=== PATIENT | female | born 1930 | race African-American/Black ===

== ENCOUNTER 2016-08-14 10:00 | Outpatient (CLI) | payer MEDICARE, OTHER | END 2016-08-14 10:02 | LOC: POD 10:00 | PROVIDERS: ATTEND Podiatrist Public Medicine | DX: B35.1 Tinea unguium (principal); L60.0 Ingrowing nail; M79.674 Pain in right toe(s); M79.675 Pain in left toe(s) | CPT/HCPCS: 11721; G0463 ==

== ENCOUNTER 2016-08-27 15:06 | Emergency (ER) | payer MEDICARE, OTHER ==
[2016-08-27 15:31] VITALS: BP 177/98
--- NOTE | 2016-08-27 15:43 | ED Physician Documentation ---
General Adult - HISTORIAN Historian: patient - HPI Stated Complaint: fall Chief Complaint: General Adult Onset: days ago (3 days ago) Timing: still present Further Comments: yes (Patient was wlking and got her toe causght on a rug and fell backwards and sustained injury to the) - ROS CONST: no problems EYES/ENT: none CVS/RESP: none GI/: none - PAST HX Past History: hypertension, other (breast cancer, HTN) Other History: none Surgeries/Procedures: other (lumpectomy) Allergies/Adverse Reactions: Allergies Allergy/AdvReac Type Severity Reaction Status Date / Time No Known Allergies Allergy Verified 08/27/16 15:24 Home Medications: Ambulatory Orders Medication Instructions Recorded Aspir 81 81 mg PO DAILY u2 10/08/12 - SOCIAL HX Smoking History: non-smoker Alcohol Use: none Drug Use: none - FAMILY HX Family History: No - VITAL SIGNS Vital Signs: Vital Signs Temp Pulse Resp BP Pulse Ox 98.8 F 74 16 177/98 98 08/27/16 15:19 08/27/16 15:19 08/27/16 15:19 08/27/16 15:19 08/27/16 15:19 - REVIEWED ASSESSMENTS Nursing Assessment Reviewed: Yes Vitals Reviewed: Yes ED Results Lab/Radiology - Radiology Radiology Impressions: degenerative disc disease, multiple levels. No acute fracture noted. General Adult Physical Exam - PHYSICAL EXAM GENERAL APPEARANCE: mild distress EENT: eye inspection normal, ENT inspection normal NECK: normal inspection, thyroid normal, supple. No: thyromegaly, lymphadenopathy RESPIRATORY: no resp distress, chest non-tender, breath sounds normal. No: wheezes, rales, rhonchi CVS: reg rate & rhythm, heart sounds normal, equal pulses, no murmur ABDOMEN: soft, no organomegaly BACK: other (tenderness to palpation over the left lateral mid to upper thoracic area, no bony abnl noted). No: CVA tenderness (R), CVA tenderness (L) SKIN: warm/dry, normal color EXTREMITIES: non-tender, normal range of motion NEURO: oriented X3, CN's nml as tested, motor nml, sensation nml Discharge Clincal Impression: Thoracic back pain Qualifiers: Chronicity: acute Back pain laterality: left Qualified Code(s): M54.6 - Pain in thoracic spine Referrals: Sue Mcneill MD [Primary Care Provider] - 09/03/16 Additional Instructions: Try using a warm compress to the back area. Take some Aleve 220mg tablets one to two tablet twice a day with food as needed for pain. Consider getting a medical alert system. Home Medications: Ambulatory Orders Aspir 81 81 mg PO DAILY u2 10/08/12 Condition: Stable Disposition: 01 HOME, SELF-CARE Decision to Admit: NO Date of Decison to Admit: 08/27/16 Decision Time: 16:48
--- NOTE | 2016-08-27 16:49 | Diagnostic Imaging Report ---
[facility] [address] [facility].[address] 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 Electronically signed on Aug 27, 2016 4:32:02 PM HEAVY MACHINERY ASSEMBLER by: Carlton CAMACHO
--- NOTE | 2016-08-27 16:50 | Diagnostic Imaging Report ---
[facility] [address] [facility].[address] 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 There is no evidence of fracture, subluxation, or prevertebral soft tissue swelling. Impression: Multilevel spondylosis without fracture. Electronically signed on Aug 27, 2016 4:32:51 PM PANTOGRAPH MACHINE SET UP OPERATOR by: Carlton CAMACHO
== END 2016-08-27 16:57 | disposition home or self-care (01) ==
LOC: ED 15:06
DX: M54.6 Pain in thoracic spine (principal); W19.XXXA Unspecified fall, initial encounter; Y93.9 Activity, unspecified; Y99.9 Unspecified external cause status
CPT/HCPCS: 72040; 72072; 99283

== ENCOUNTER 2016-11-13 10:26 | Outpatient (CLI) | payer MEDICARE | END 2016-11-13 10:27 | LOC: POD 10:26 | PROVIDERS: ATTEND Podiatrist Public Medicine | DX: B35.1 Tinea unguium (principal); L60.0 Ingrowing nail; M79.674 Pain in right toe(s); M79.675 Pain in left toe(s) | CPT/HCPCS: 11721; G0463 ==

== ENCOUNTER 2016-11-17 12:33 | Emergency (ER) | payer MEDICARE ==
[2016-11-17] MEDS ORDERED: 0.9 % SODIUM CHLORIDE 500 ML IV ONE (12:52)
[2016-11-17 13:54] LABS: BASOPHILS % 0.2 (0.0-1.5); EOSINOPHILS % 1.7 % (0.0-6.8); MEAN CORPUSCULAR VOLUME 95.8 fl (80.0-100.0); MONOCYTES % 7.3 % (0.0-11.0); NEUTROPHILS # 4.8 # k/uL (1.4-7.7)
[2016-11-17 14:02] LABS: eGFR (African) > 60; eGFR (Non-African) > 60
--- NOTE | 2016-11-17 14:23 | ED Physician Documentation ---
General Adult - HISTORIAN Historian: patient - HPI Stated Complaint: weakness Chief Complaint: General Adult Onset: days ago (1) Timing: still present Severity: moderate Further Comments: yes (Pt is an 86 yo female with c/o weakness. Pt "does not eat much," mainly because she lives alone and does not like to cook, she says. No other specific complaints.) - ROS CONST: weakness EYES/ENT: none CVS/RESP: none GI/: none MS/SKIN/LYMPH: none - PAST HX Past History: hypertension, other (breast cancer) Surgeries/Procedures: hysterectomy, other (appendectomy, tonsillectomy) Allergies/Adverse Reactions: Allergies Allergy/AdvReac Type Severity Reaction Status Date / Time No Known Allergies Allergy Verified 11/17/16 12:51 Home Medications: Ambulatory Orders Medication Instructions Recorded Aspir 81 81 mg PO DAILY u2 10/08/12 - SOCIAL HX Smoking History: quit greater than 1 year - FAMILY HX Family History: No - VITAL SIGNS Vital Signs: Vital Signs Temp Pulse Resp BP Pulse Ox 98.2 F 75 16 157/89 97 11/17/16 13:11 11/17/16 13:11 11/17/16 13:11 11/17/16 13:11 11/17/16 13:11 - REVIEWED ASSESSMENTS Nursing Assessment Reviewed: Yes Vitals Reviewed: Yes Progress - Progress Progress: NS 500 cc IVF improved HCTZ 25 mg po (pt did not take her bp med today). ED Results Lab/Radiology - Lab Results Lab Results: Lab Results 11/17/16 11/17/16 13:45 13:45 WBC 7.20 K/ul K/ul (4.00-12.00) RBC 4.16 M/ul M/ul (3.90-5.20) Hgb 12.5 g/dL g/dL (12.0-16.0) Hct 39.9 % % (34.5-46.5) MCV 95.8 fl fl (80.0-100.0) MCH 30.0 pg pg (28.0-34.0) MCHC 31.3 g/dL g/dL (30.0-36.0) RDW 14.1 % % (11.3-14.3) Plt Count 141 K/mm3 K/mm3 (130-400) Neut % (Auto) 66.1 % % (39.0-79.0) Lymph % (Auto) 22.6 % % (16.0-50.0) [place] % (Auto) 7.3 % % (0.0-11.0) Eos % (Auto) 1.7 % % (0.0-6.8) Baso % (Auto) 0.2 (0.0-1.5) Neut # 4.8 # k/uL # k/uL (1.4-7.7) Lymph # 1.6 # k/uL # k/uL (0.6-4.0) [place] # 0.5 # k/uL # k/uL (0.0-0.9) Eos # 0.1 # k/uL # k/uL (0.0-0.6) Baso # 0.0 # k/uL # k/uL (0.0-0.5) Reactive Lymphs % 2.0 % % (0.0-5.0) Reactive Lymphs # 0.2 # k/uL # k/uL (0.0-0.8) Sodium 140 mmol/L mmol/L (136-145) Potassium 4.7 mmol/L mmol/L (3.5-5.0) Chloride 116 mmol/L H mmol/L (98-110) Carbon Dioxide 29 mmol/L mmol/L (20-32) BUN 20 mg/dL mg/dL (10-26) Creatinine 1.1 mg/dL mg/dL (0.4-1.5) Estimated Creat Clear 32 Est GFR ( Amer) > 60 (60 - ) Est GFR (Non-Af Amer) > 60 (60 - ) Glucose 86 mg/dL mg/dL (70-99) Calcium 9.9 mg/dL mg/dL (8.5-10.5) Total Bilirubin 0.5 mg/dL mg/dL (0.2-1.2) AST 23 U/L U/L (0-41) ALT 10 U/L U/L (0-45) Alkaline Phosphatase 48 U/L U/L (46-116) Total Protein 7.3 g/dL g/dL (6.0-8.5) Albumin 3.5 g/dL g/dL (3.0-5.5) - Orders Orders: ED Orders Category Date Time Status Place Saline Lock/IV Now Care 11/17/16 12:52 Active CBC/PLATELET/DIFF Routine Lab 11/17/16 13:45 Completed CMP Routine Lab 11/17/16 13:45 Completed UA [URINALYSIS] Routine Lab 11/17/16 Ordered 0.9 % Sodium Chloride [Normal Saline] 500 ml Med 11/17/16 12:52 Discontinued IV NOW General Adult Physical Exam - PHYSICAL EXAM GENERAL APPEARANCE: mild distress EENT: dry mucous membranes NECK: normal inspection, supple RESPIRATORY: no resp distress, chest non-tender, breath sounds normal CVS: reg rate & rhythm, heart sounds normal ABDOMEN: soft, no organomegaly, normal bowel sounds BACK: normal inspection, no CVA tenderness SKIN: warm/dry, normal color EXTREMITIES: non-tender, normal range of motion, no evidence of injury, no edema NEURO: oriented X3, motor nml, sensation nml Discharge Clincal Impression: mild dehydration, hypertension Referrals: Sue Mcneill MD [Primary Care Provider] - 2 Days Home Medications: Ambulatory Orders Aspir 81 81 mg PO DAILY u2 10/08/12 Condition: Good Disposition: 01 HOME, SELF-CARE Decision to Admit: NO Decision Time: 15:49
[2016-11-17] MEDS ORDERED: HYDROCHLOROTHIAZIDE 25 MG TABLET PO ONE (14:42)
[2016-11-17] MEDS ORDERED: HYDROCHLOROTHIAZIDE 25 MG TABLET PO SCH (15:00)
[2016-11-17 15:54] VITALS: BP 169/89
[2016-11-18 05:53] LABS: APPEARANCE,URINE CLOUDY (CLEAR); COLOR,URINE YELLOW (YELLOW); OCCULT BLOOD,URINE TRACE-INTACT (NEGATIVE); PH URINE 8.5 (5.0 - 8.0)
== END 2016-11-17 15:51 | disposition home or self-care (01) ==
LOC: ED 12:33
DX: E86.0 Dehydration (principal); I10 Essential (primary) hypertension
CPT/HCPCS: 80053; 81002; 85025; J7060; 96360; 99283; S1016

== ENCOUNTER 2017-02-26 09:49 | Outpatient (CLI) | payer MEDICARE, OTHER | END 2017-02-26 09:50 | LOC: POD 09:49 | PROVIDERS: ATTEND Podiatrist Public Medicine | DX: B35.1 Tinea unguium (principal); L60.0 Ingrowing nail; M79.674 Pain in right toe(s); M79.675 Pain in left toe(s) | CPT/HCPCS: 11721; G0463 ==

== ENCOUNTER 2017-08-13 11:05 | Outpatient (CLI) | payer MEDICARE, OTHER | END 2017-08-13 11:06 | LOC: POD 11:05 | PROVIDERS: ATTEND Podiatrist Public Medicine | DX: B35.1 Tinea unguium (principal); L60.0 Ingrowing nail; M79.674 Pain in right toe(s); M79.675 Pain in left toe(s) | CPT/HCPCS: 11721; G0463 ==

== ENCOUNTER 2017-11-12 09:08 | Outpatient (CLI) | payer MEDICARE, OTHER | END 2017-11-12 09:10 | LOC: POD 09:08 | PROVIDERS: ATTEND Podiatrist Public Medicine | DX: B35.1 Tinea unguium (principal); L60.0 Ingrowing nail; M79.674 Pain in right toe(s); M79.675 Pain in left toe(s) | CPT/HCPCS: 11721; G0463 ==

== ENCOUNTER 2017-11-20 18:06 | Emergency (ER) | payer MEDICARE, OTHER ==
[2017-11-20] MEDS ORDERED: 0.9 % SODIUM CHLORIDE 500 ML IV ONE (18:12)
[2017-11-20 19:32] LABS: BASOPHILS % 0.8 (0.0-1.5); EOSINOPHILS % 3.1 % (0.0-6.8); MEAN CORPUSCULAR HEMOGLOBIN 29.4 pg (28.0-34.0); MEAN CORPUSCULAR VOLUME 94.7 fl (80.0-100.0); MONOCYTES % 8.1 % (0.0-11.0); NEUTROPHILS # 2.2 # k/uL (1.4-7.7)
[2017-11-20 19:45] LABS: eGFR (African) > 60; eGFR (Non-African) > 60
[2017-11-20] MEDS ORDERED: hydrALAZINE HCL 20 MG/1 ML IVP ONE (20:12)
--- NOTE | 2017-11-20 21:54 | ED Physician Documentation ---
General Adult - HISTORIAN Historian: patient - HPI Stated Complaint: Generalized weakness Chief Complaint: General Adult Additional Information: Sudden onset weakness, dizziness today Onset: hours (1) Timing: still present Severity: moderate Modifying Factors: none Quality: generalized Further Comments: no Last known Well Date: 11/19/17 - ROS CONST: no problems. denies: fever, sweating, recent illness, weakness, weight loss, chills EYES/ENT: none CVS/RESP: none GI/: none MS/SKIN/LYMPH: none NEURO/PSYCH: dizziness - PAST HX Past History: hypertension Other History: none Surgeries/Procedures: hysterectomy Immunizations: referred to PCP Allergies/Adverse Reactions: Allergies Allergy/AdvReac Type Severity Reaction Status Date / Time No Known Allergies Allergy Verified 11/20/17 18:44 Home Medications: Ambulatory Orders Medication Instructions Recorded Aspirin [Tatiana] 81 mg PO DAILY 11/20/17 - SOCIAL HX Smoking History: non-smoker Alcohol Use: none Drug Use: none - FAMILY HX Family History: Yes - VITAL SIGNS Vital Signs: Vital Signs Temp Pulse Resp BP Pulse Ox 98.4 F 81 18 164/86 96 11/20/17 18:30 11/20/17 18:30 11/20/17 18:30 11/20/17 18:30 11/20/17 18:30 - REVIEWED ASSESSMENTS Nursing Assessment Reviewed: Yes Vitals Reviewed: Yes Progress - Results/Orders Results/Orders: cbc, cmp, trop, pt/ptt/inr, bnp, ekg, cxr, ct head ordered - Progress Progress: Pt. given 500 cc NS IV abd 10 mg Hydralazine IVP in ER with reduction of BP from 229/108 to 130/70 with significant improvement, resolution of symptoms, clear speech Critical Care Note - Critical Care Note Total Time (mins): 0 ED Results Lab/Radiology - Lab Results Lab Results: Lab Results 11/20/17 11/20/17 11/20/17 19:25 19:25 19:25 WBC RBC Hgb Hct MCV MCH MCHC RDW Plt Count Neut % (Auto) Lymph % (Auto) [place] % (Auto) Eos % (Auto) Baso % (Auto) Neut # (Auto) Lymph # (Auto) [place] # (Auto) Eos # (Auto) Baso # (Auto) Reactive Lymphs % Reactive Lymphs # PT 11.9 Seconds H Seconds (9.4-11.6) INR 1.13 (0.9-1.2) APTT 25.6 Seconds Seconds (24.5-32.8) Sodium 142 mmol/L mmol/L (136-145) Potassium 3.6 mmol/L mmol/L (3.5-5.1) Chloride 104 mmol/L mmol/L (98-107) Carbon Dioxide 28 mmol/L mmol/L (22-30) BUN 21 mg/dL H mg/dL (7-17) Creatinine 1.10 mg/dL H mg/dL (0.52-1.04) Estimated Creat Clear 36 Est GFR ( Amer) > 60 (60 - ) Est GFR (Non-Af Amer) > 60 (60 - ) Glucose 97 mg/dL mg/dL (74-106) Calcium 9.4 mg/dL mg/dL (8.4-10.2) Total Bilirubin 0.7 mg/dL mg/dL (0.2-1.3) AST 20 U/L U/L (15-46) ALT 20 U/L U/L (13-69) Alkaline Phosphatase 74 U/L U/L (38-126) Troponin I < 0.03 ng/mL L ng/mL (0.03-0.06) NT-Pro-B Natriuret Pep 741.6 pg/mL H pg/mL (15.0-450.0) Total Protein 6.8 g/dL g/dL (6.3-8.2) Albumin 3.4 g/dL L g/dL (3.5-5.0) 11/20/17 19:25 WBC 4.20 K/ul K/ul (4.00-12.00) RBC 4.40 M/ul M/ul (3.90-5.20) Hgb 12.9 g/dL g/dL (12.0-16.0) Hct 41.7 % % (34.5-46.5) MCV 94.7 fl fl (80.0-100.0) MCH 29.4 pg pg (28.0-34.0) MCHC 31.0 g/dL g/dL (30.0-36.0) RDW 14.8 % H % (11.3-14.3) Plt Count 173 K/mm3 K/mm3 (130-400) Neut % (Auto) 52.9 % % (39.0-79.0) Lymph % (Auto) 32.7 % % (16.0-50.0) [place] % (Auto) 8.1 % % (0.0-11.0) Eos % (Auto) 3.1 % % (0.0-6.8) Baso % (Auto) 0.8 (0.0-1.5) Neut # (Auto) 2.2 # k/uL # k/uL (1.4-7.7) Lymph # (Auto) 1.4 # k/uL # k/uL (0.6-4.0) [place] # (Auto) 0.3 # k/uL # k/uL (0.0-0.9) Eos # (Auto) 0.1 # k/uL # k/uL (0.0-0.6) Baso # (Auto) 0.0 # k/uL # k/uL (0.0-0.5) Reactive Lymphs % 2.5 % % (0.0-5.0) Reactive Lymphs # 0.1 # k/uL # k/uL (0.0-0.8) PT INR APTT Sodium Potassium Chloride Carbon Dioxide BUN Creatinine Estimated Creat Clear Est GFR ( Amer) Est GFR (Non-Af Amer) Glucose Calcium Total Bilirubin AST ALT Alkaline Phosphatase Troponin I NT-Pro-B Natriuret Pep Total Protein Albumin - Radiology Radiology Impressions: ct head reveals no ventricular enlargement and no cva - Orders Orders: ED Orders Category Date Time Status CHEST 1VIEW [RAD] Routine Exams 11/20/[address] BRAIN W/O CONTRAST Routine Exams 11/20/17 Taken CBC/PLATELET/DIFF Routine Lab 11/20/17 19:25 Completed CMP Routine Lab 11/20/17 19:25 Completed NT-proBNP Routine Lab 11/20/17 19:25 Completed PT-INR Routine Lab 11/20/17 19:25 Completed PTT Routine Lab 11/20/17 19:25 Completed TROPONIN I (cTnI) Routine Lab 11/20/17 19:25 Completed URINALYSIS Routine Lab 11/20/17 18:16 Ordered 0.9 % Sodium Chloride [Normal Saline] 500 ml Med 11/20/17 18:12 Discontinued IV NOW hydrALAZINE HCL [Apresoline] Med 11/20/17 20:12 Discontinued 10 mg IVP NOW ONE EKG WITH COMPARISON Routine Ther 11/20/17 Ordered General Adult Physical Exam - PHYSICAL EXAM GENERAL APPEARANCE: moderate distress EENT: ENT inspection normal, pharynx normal, other (bilateral catarracts) NECK: normal inspection, thyroid normal, supple RESPIRATORY: no resp distress, chest non-tender, breath sounds normal CVS: reg rate & rhythm, heart sounds normal, equal pulses ABDOMEN: soft, no organomegaly, normal bowel sounds, no abdominal bruit, no distension, non-tender BACK: normal inspection, no CVA tenderness SKIN: warm/dry, normal color EXTREMITIES: non-tender, normal range of motion, no evidence of injury, no edema NEURO: oriented X3, other (no facial droop but speech nondistinct without teeth , after treatment speech clear, still lose muscle tension around mouth without teeth) Discharge Clincal Impression: Accelerated hypertension Referrals: Sue Mcneill MD [Primary Care Provider] - 2 Days Comments: Discharged home with script for Hydralazine 25 mg p.o. bid Condition: Stable Disposition: 01 HOME, SELF-CARE Decision to Admit: NO Decision Time: 21:55
[2017-11-20 22:16] VITALS: BP 130/70
--- NOTE | 2017-11-21 07:06 | Diagnostic Imaging Report ---
DENISA BALL [facility] [address] [facility] [address] [place], [place]. [address] Report Submission Date: Nov 20, 2017 7:21:08 PM CDT Patient Study Name: VICKIE DOSHI Date: Nov 20, 2017 6:56:57 PM CDT Modality Type: DX Gender: F Description: CHEST : 30 Institution: [facility] Physician: DENISA BALL A single frontal view of the chest History: PCXR, LEFT SIDED RALES, WEAKNESS AND DIZZINESS TODAY No comparison studies. Cardiomegaly and aortic calcification are seen. Low lung volumes. Pulmonary vascular congestion is present. Left basilar consolidation obscures the left hemidiaphragm. Surgical clips are seen in the axilla. Extensive degenerative changes are noted in bilateral shoulders. Several monitoring leads or the chest obscure the lung fernando. Impression: 1. Cardiomegaly with pulmonary vascular congestion 2. Left basilar consolidation. Small left pleural effusion is suggested. Post surgical changes left axilla. Electronically signed on Nov 20, 2017 7:21:08 PM CDT by: Tereza CAMACHO
--- NOTE | 2017-11-21 07:07 | Diagnostic Imaging Report ---
DENISA BALL [facility] [address] [facility] [address] [place], [place]. [address] Report Submission Date: Nov 20, 2017 7:18:01 PM CDT Patient Study Name: VICKIE DOSHI Date: Nov 20, 2017 6:50:21 PM CDT Modality Type: CT\SR Gender: F Description: CT BRAIN W/O CONTRAST : 30 Institution: [facility] Physician: DENISA BALL CT head History: CT HEAD W/O, HYDROCEPHALUS, PT STATES DIZZINESS AND WEAKNESS TODAY Multiple axial images of the brain are submitted with reconstructions No comparison studies No evidence of acute intracranial hemorrhage. No midline shift. Cerebral atrophy. Periventricular small vessel ischemic disease. Lacunar infarcts basal ganglia Prominent lateral ventricles and 3rd ventricle consistent with provided history of hydrocephalus. Scattered lytic calvarial lesions may be related to demineralization. Paranasal air sinuses and mastoid air cells are well aerated. Impression: 1. No evidence of acute intracranial hemorrhage. No midline shift. 2. Hydrocephalus. No comparison studies. No obvious mass on this noncontrast examination. 3. Cerebral atrophy. Periventricular hyppdensities may be related to small vessel ischemic disease and CSF transudation. 4. Lacunar infarcts in the basal ganglia. MR may be done as needed. Electronically signed on Nov 20, 2017 7:18:01 PM CDT by: Tereza CAMACHO
== END 2017-11-20 22:13 | disposition home or self-care (01) ==
LOC: ED 18:06
DX: I10 Essential (primary) hypertension (principal); R53.1 Weakness
CPT/HCPCS: 70450; 71045; 80053; 83880; 84484; 85025; 85610; 85730; J0360; J7060; 96365; 96375; 99283

== ENCOUNTER 2018-01-16 19:37 | Emergency (ER) | payer MEDICARE, OTHER ==
--- NOTE | 2018-01-16 19:44 | ED Physician Documentation ---
Fall - HISTORIAN Historian: patient, paramedics - [facility] Stated Complaint: fall Chief Complaint: Fall Additional Information: Walked to answer door, but walker turned over when she backed up. Landed on her back and couldn't get up. She says this occurred at 1700 today. EMS called by her medical aler alarm. EMS says her ac is broken and temp about 85 in her home. She is awake and alert in ER and says she feels fine. She denies LOC or injury. HX HTN. - ROS CONST: no problems - PAST HX Past History: other (HTN, breast cancer, Adair's Palsy) Allergies/Adverse Reactions: Allergies Allergy/AdvReac Type Severity Reaction Status Date / Time No Known Allergies Allergy Verified 11/20/17 18:44 Home Medications: Ambulatory Orders Medication Instructions Recorded Aspirin [Tatiana] 81 mg PO DAILY 11/20/17 - SOCIAL HX Smoking History: non-smoker - FAMILY HX Family History: no significant history - VITAL SIGNS Vital Signs: Vital Signs Temp Pulse Resp BP Pulse Ox 130/70 11/20/17 22:13 - REVIEWED ASSESSMENTS Nursing Assessment Reviewed: Yes Vitals Reviewed: Yes Progress - Progress Progress: Eating a sandwich, visiting with family. Discussed temperature of patient's home with family members. They iinsist she likes it hot in her house. They know the freon is low in her ac system. ED Results Lab/Radiology - Orders Orders: ED Orders Category Date Time Status Place IV Lock 1T Care 01/16/18 19:40 Ordered CBC/PLATELET/DIFF Routine Lab 01/16/18 Ordered CMP Routine Lab 01/16/18 Ordered CREATINE KINASE Routine Lab 01/16/18 Ordered NT-proBNP Stat Lab 01/16/18 Ordered 0.9 % Sodium Chloride [Normal Saline] 1,000 ml Med 01/16/18 20:00 Ordered IV 1T Fall Physical Exam - Physical Exam General Appearance: no acute distress, alert Head: non-tender, no swelling, no obvious injury Neck: non-tender, painless ROM Eye: decreased vision (OD not functional) ENT: nml external inspection, no oral injury Resp/CVS: chest non-tender, breath sounds nml, heart sounds nml Abdomen: soft, normal bowel sounds, non-tender, other (pelvis stable) Neuro: CN's nml as tested, sensation nml, motor nml, slurred speech (L facial droop (old)) Skin: color nml, warm Back: normal inspection, no vertebral tenderness Extremities: pelvis stable, hips non-tender, other (readily rises to sitting position) - Manor Coma Score Eyes Open: Spontaneous Speech: Oriented Motor: Obeys Commands Discharge Clincal Impression: Fall Qualifiers: Encounter type: initial encounter Qualified Code(s): W19.XXXA - Unspecified fall, initial encounter Referrals: Sue Mcneill MD [Primary Care Provider] - 2 Days Additional Instructions: Keep the temperature in your home at something less than 80 degrees, or please stay with family until your air conditioner has more freon. Follow up with Dr. Mcneill next week. Condition: Good Disposition: 01 HOME, SELF-CARE Decision to Admit: NO Decision Time: 20:50
[2018-01-16] MEDS: 0.9 % SODIUM CHLORIDE 1,000 ML IV ONE (20:30)
[2018-01-16 20:41] LABS: BASOPHILS % 0.2 (0.0-1.5); EOSINOPHILS % 2.6 % (0.0-6.8); MEAN CORPUSCULAR HEMOGLOBIN 29.4 pg (28.0-34.0); MEAN CORPUSCULAR VOLUME 94.5 fl (80.0-100.0); MONOCYTES % 7.4 % (0.0-11.0)
[2018-01-16 21:06] VITALS: BP 203/110
[2018-01-17] MEDS: 0.9 % SODIUM CHLORIDE 1,000 ML IV SCH (01:10)
== END 2018-01-16 21:09 | disposition home or self-care (01) ==
LOC: ED 19:37
DX: S39.92XA Unspecified injury of lower back, initial encounter (principal); W19.XXXA Unspecified fall, initial encounter; Y92.008 Other place in unspecified non-institutional (private) residence as the place of occurrence of the external cause; Y93.9 Activity, unspecified; Y99.9 Unspecified external cause status
CPT/HCPCS: 80053; 82550; 83880; 85025; J7030; 96365; 99284

== ENCOUNTER 2018-02-25 09:32 | Outpatient (CLI) | payer MEDICARE, OTHER | END 2018-02-25 09:33 | LOC: POD 09:32 | PROVIDERS: ATTEND Podiatrist Public Medicine | DX: B35.1 Tinea unguium (principal); L60.0 Ingrowing nail; M79.674 Pain in right toe(s); M79.675 Pain in left toe(s) | CPT/HCPCS: 11721; G0463 ==

== ENCOUNTER 2018-03-24 15:00 | Emergency (ER) | payer MEDICARE, OTHER ==
--- NOTE | 2018-03-24 15:29 | ED Physician Documentation ---
Dyspnea - HISTORIAN Historian: patient - HPI Stated Complaint: Shortness of Breath/Weakness Chief Complaint: Dyspnea Additional Information: Over the last 2-3 weeks has been having some increase dyspnea. Complains of weakness and lethargy. Cough productive of clear phlegm. no chest noted. Mild orthopnic symptoms. No fever or chills noted. No household members sick. Severity: moderate Associated Symptoms: none. denies: chills, sweating, chest pain, chest discomfort - ROS CONST: no problems - PAST HX Lung Disease: none Cardiac Disease: none Allergies/Adverse Reactions: Allergies Allergy/AdvReac Type Severity Reaction Status Date / Time No Known Allergies Allergy Verified 03/24/18 15:25 Home Medications: Ambulatory Orders Medication Instructions Recorded Furosemide [Lasix] 20 mg PO PRN PRN 03/24/18 Hydralazine HCl [Apresoline] 25 mg PO BID 03/24/18 Senexon-S 8.6-50 Mg 2 tab PO HS PRN 03/24/18 - SOCIAL HX Smoking History: non-smoker, quit greater than 1 year (30 years ago. 65pack yr hx. ) Alcohol Use: none Drug Use: none - FAMILY HX Family History: no significant history - VITAL SIGNS Vital Signs: Vital Signs Temp Pulse Resp BP Pulse Ox 98.1 F 76 18 133/69 96 03/24/18 15:00 03/24/18 15:00 03/24/18 15:00 03/24/18 15:00 03/24/18 15:00 - REVIEWED ASSESSMENTS Nursing Assessment Reviewed: Yes Vitals Reviewed: Yes ED Results Lab/Radiology - Radiology Radiology Impressions: PA and lateral chest History: Dyspnea PA and lateral chest dated March 24, 2018 is without prior radiographs for comparison. The heart is mildly enlarged. There is abnormal perihilar fullness and haziness most consistent with mild congestive failure. There is no pleural effusion. There is no confluent infiltrate. Surgical clips are present of the left axilla. Degenerative findings of both shoulder joints are present. Impression: Mild cardiomegaly. Findings consistent with mild congestive failure. Dyspnea Physical Exam - EXAM General Appearance: no acute distress, alert, mild distress EENT: No: pharyngeal erythema Neck: nml inspection Respiratory: no resp. distress, breath sounds nml, no pain on inspiration, speaks full sentences, rales (in bases bilat R>L). No: rhonchi, chest wall tenderness CVS: reg. rate & rhythm, no murmur Abdomen: non-tender, no organomegaly Skin: color nml, no rash Neuro/Psych: oriented x3, CN's nml as tested, motor nml, sensation nml, mood/affect nml Discharge Clincal Impression: CHF (congestive heart failure) Referrals: Sue Mcneill MD [Primary Care Provider] - 2 Days Additional Instructions: Start taking lasix daily as instructed. Follow-up with primary care provider. Eat helthy diet. Condition: Stable Disposition: 01 HOME, SELF-CARE Decision to Admit: NO Date of Decison to Admit: 03/24/18 Decision Time: 16:49
[2018-03-24 16:04] LABS: BASOPHILS % 0.3 (0.0-1.5); EOSINOPHILS % 4.1 % (0.0-6.8); MEAN CORPUSCULAR VOLUME 95.2 fl (80.0-100.0); MONOCYTES % 9.2 % (0.0-11.0); NEUTROPHILS # 1.7 # k/uL (1.4-7.7)
[2018-03-24 16:15] LABS: eGFR (Non-African) > 60
[2018-03-24 17:27] VITALS: BP 150/68
[2018-03-24 17:30] LABS: APPEARANCE,URINE CLOUDY (CLEAR); COLOR,URINE YELLOW (YELLOW)
[2018-03-24 17:31] LABS: OCCULT BLOOD,URINE NEGATIVE (NEGATIVE)
--- NOTE | 2018-03-24 18:12 | Diagnostic Imaging Report ---
MARY CORREIA [facility] [address] [facility].[address] [address] Report Submission Date: Mar 24, 2018 4:21:13 PM CDT Patient Study Name: VICKIE DOSHI Date: Mar 24, 2018 3:42:07 PM CDT Modality Type: DX Gender: F Description: CHEST : 30 Institution: [facility] Physician: MARY CORREIA PA and lateral chest History: Dyspnea PA and lateral chest dated March 24, 2018 is without prior radiographs for comparison. The heart is mildly enlarged. There is abnormal perihilar fullness and haziness most consistent with mild congestive failure. There is no pleural effusion. There is no confluent infiltrate. Surgical clips are present of the left axilla. Degenerative findings of both shoulder joints are present. Impression: Mild cardiomegaly. Findings consistent with mild congestive failure. Electronically signed on Mar 24, 2018 4:21:13 PM CDT by: Ximena CAMACHO
== END 2018-03-24 17:26 | disposition home or self-care (01) ==
LOC: ED 15:00
DX: I50.9 Heart failure, unspecified (principal)
CPT/HCPCS: 71046; 80053; 81002; 83880; 84484; 85025; 99284; S1016

== ENCOUNTER 2018-10-27 14:03 | Emergency (ER) | payer MEDICARE, OTHER ==
[2018-10-27 14:34] VITALS: BP 144/80
--- NOTE | 2018-10-27 14:37 | ED Physician Documentation ---
General Adult - HISTORIAN Historian: patient - HPI Stated Complaint: Constipation Chief Complaint: General Adult Onset: days ago (14) Timing: still present Severity: mild Further Comments: yes (she reports no bowel movement in 14 days. She denies significant pain. She has a fullness at her recutm. She has tried 6 oz of mag citrate today and 4 oz of prune juice. No other complaints) - ROS CONST: no problems GI/: abdominal pain MS/SKIN/LYMPH: denies: rash - PAST HX Past History: hypertension Immunizations: UTD Allergies/Adverse Reactions: Allergies Allergy/AdvReac Type Severity Reaction Status Date / Time No Known Drug Allergies Allergy Verified 10/27/18 14:22 Home Medications: Ambulatory Orders Medication Instructions Recorded Furosemide [Lasix] 20 mg PO PRN PRN 03/24/18 Hydralazine HCl [Apresoline] 25 mg PO BID 03/24/18 Sennosides/Docusate Sodium 2 tab PO HS PRN 03/24/18 [Senna-S Laxative Tablet] - SOCIAL HX Smoking History: non-smoker Alcohol Use: none Drug Use: none - FAMILY HX Family History: No - VITAL SIGNS Vital Signs: Vital Signs Temp Pulse Resp BP Pulse Ox 97.0 F L 117 H 17 144/80 96 10/27/18 14:10 10/27/18 14:10 10/27/18 14:10 10/27/18 14:10 10/27/18 14:10 - REVIEWED ASSESSMENTS Nursing Assessment Reviewed: Yes Vitals Reviewed: Yes ED Results Lab/Radiology - Radiology Radiology Impressions: Examination: Obstruction series History: Abdominal discomfort Findings: 4 views obtained of the abdomen. No abnormal dilation of the large or small bowel. Moderate stool throughout the large bowel. No suspicious calcification projecting over the renal fossa or the lower pelvic region. Vascular calcifications. Articular degenerative changes. Osteopenia. Chronic interstitial changes. No blunting of the costophrenic margins. Impression: Moderate large bowel stool. No obstruction. Chronic interstitial changes. No effusion. No suspicious calcifications by plain film sensitivity. Electronically signed on Oct 27, 2018 2:54:21 PM CDT by: Saul Lainez - Orders Orders: ED Orders Category Date Time Status ABD SERIES [ABD SERIES PA CHEST] [RAD] Stat Exams 10/27/18 Ordered General Adult Physical Exam - PHYSICAL EXAM GENERAL APPEARANCE: no distress EENT: eye inspection normal, no signs of dehydration NECK: normal inspection RESPIRATORY: no resp distress CVS: reg rate & rhythm, heart sounds normal ABDOMEN: soft, normal bowel sounds, no distension, non-tender BACK: normal inspection EXTREMITIES: non-tender NEURO: oriented X3 Discharge Clincal Impression: Constipation Qualifiers: Constipation type: other constipation type Qualified Code(s): K59.09 - Other constipation Referrals: Primary Doctor,No [Primary Care Provider] - 2 Days Comments: 1. other 1/2 of mag citrate 2. Continue to increase fluids 3. Miralax 17gm in 8 oz of water daily 4. See PCP for any follow up needed 5. Return to ER for any emergent concerns Condition: Stable Disposition: 01 HOME, SELF-CARE Decision to Admit: NO Date of Decison to Admit: 10/27/18 Decision Time: 14:58
--- NOTE | 2018-10-27 15:02 | Diagnostic Imaging Report ---
SHANIQUE ESTRELLA [facility] [address] [facility] [address] [place], [place]. [address] Report Submission Date: Oct 27, 2018 2:54:21 PM CDT Patient Study Name: VICKIE DOSHI Date: Oct 27, 2018 2:26:41 PM CDT Modality Type: DX Gender: F Description: ABD SERIES PA CHEST : 30 Institution: [facility] Physician: SHANIQUE ESTRELLA Examination: Obstruction series History: Abdominal discomfort Findings: 4 views obtained of the abdomen. No abnormal dilation of the large or small bowel. Moderate stool throughout the large bowel. No suspicious calcification projecting over the renal fossa or the lower pelvic region. Vascular calcifications. Articular degenerative changes. Osteopenia. Chronic interstitial changes. No blunting of the costophrenic margins. Impression: Moderate large bowel stool. No obstruction. Chronic interstitial changes. No effusion. No suspicious calcifications by plain film sensitivity. Electronically signed on Oct 27, 2018 2:54:21 PM CDT by: Saul CAMACHO
== END 2018-10-27 15:19 | disposition home or self-care (01) ==
LOC: ED 14:03
DX: K59.09 Other constipation (principal)
CPT/HCPCS: 74022; 99282; 99283

== ENCOUNTER 2019-04-06 14:49 | Emergency (ER) | payer MEDICARE, OTHER ==
--- NOTE | 2019-04-06 14:51 | ED Physician Documentation ---
General Adult - HISTORIAN Historian: patient - HPI Stated Complaint: nausea/dizzy Chief Complaint: General Adult Additional Information: Patient presents to ED with nausea and dizziness for the past 2 days. She denies shortness of breath, chest pain, visual changes, vomiting, abdominal pain, or weakness. Caregiver states she has not been eating or drinking like she should. Last bowel movement was a couple of days ago. Patient has a history of CHF, breast cancer s/p chemo/ Onset: days ago (2) Timing: still present Severity: moderate - ROS CONST: denies: fever EYES/ENT: denies: problems with vision CVS/RESP: denies: chest pain, shortness of breath GI/: nausea. denies: abdominal pain, vomiting, diarrhea MS/SKIN/LYMPH: none NEURO/PSYCH: dizziness. denies: headache, numbness, difficulty with speech - PAST HX Past History: CHF Other History: none Allergies/Adverse Reactions: Allergies Allergy/AdvReac Type Severity Reaction Status Date / Time No Known Drug Allergies Allergy Verified 04/06/19 15:45 Home Medications: Ambulatory Orders Medication Instructions Recorded Aspirin EC [Ecotrin] 81 mg PO DAILY 04/06/19 Ondansetron HCl Rapdis [Zofran Odt] 4 mg PO Q8 PRN #30 tab 04/06/19 - SOCIAL HX Smoking History: non-smoker Alcohol Use: none Drug Use: none - FAMILY HX Family History: No - VITAL SIGNS Vital Signs: Vital Signs Temp Pulse Resp BP Pulse Ox 144/80 10/27/18 15:19 - REVIEWED ASSESSMENTS Nursing Assessment Reviewed: Yes Vitals Reviewed: Yes Progress - EKG/XRAY/CT EKG: NSR Comments: [address] elevation ED Results Lab/Radiology - Radiology Radiology Impressions: Report Submission Date: Apr 06, 2019 3:45:02 PM CDT Patient Study Name: VICKIE DOSHI Date: Apr 06, 2019 3:11:11 PM CDT Modality Type: DX Gender: F Description: CHEST 2VIEW : 30 Institution: [facility] Physician: JERONIMO BELTRAN 2 views of the chest History: Dizziness Comparison: March 24, 2018 Patient is rotated. Cardiac size upper limits of normal. Limited evaluation of the mediastinum and pulmonary nahum. Aortic calcification. Post surgical changes left axilla. Right shoulder degenerative changes. Calcification at the left scapula. Nodular density noted at the right 6th posterior rib. Left basilar atelectasis/patchy infiltrate. Device/ battery pack is noted over the posterior chest Impression: 1. Patient is rotated. Limited evaluation of the mediastinum and pulmonary hilum. Left basilar patchy infiltrate/atelectasis. 2. Indeterminate rounded 1.1 cm density noted at the posterior right 6th rib, lesion and/or malignancy is difficult to exclude. This can be evaluated with dedicated right rib series and/or cross-sectional imaging. Electronically signed on Apr 06, 2019 3:45:02 PM CDT by: Tereza Mattson Submission Date: Apr 06, 2019 3:45:13 PM CDT Patient Study Name: VICKIE DOSHI Date: Apr 06, 2019 3:11:11 PM CDT Modality Type: DX Gender: F Description: ABDOMEN 1VIEW : 30 Institution: [facility] Physician: JERONIMO BELTRAN Exam: Single-view abdomen. History: Nausea. The examination is compared to a study dated October 27, 2018. Scattered loops of bowel gas in both large and small intestine is noted with a moderate amount of retained fecal material seen in the colon. No organomegaly is seen. No renal or biliary calcifications are noted. No free air is identified Impression: Nonspecific bowel gas pattern. Electronically signed on Apr 06, 2019 3:45:13 PM CDT by: Refguio Sosa General Adult Physical Exam - PHYSICAL EXAM GENERAL APPEARANCE: no distress EENT: LOIS NECK: supple. No: lymphadenopathy RESPIRATORY: no resp distress, chest non-tender, breath sounds normal CVS: reg rate & rhythm, heart sounds normal ABDOMEN: soft, normal bowel sounds SKIN: warm/dry, normal color EXTREMITIES: non-tender, edema (+1 lower extremity edema bilateral just above ankle) NEURO: oriented X3, motor nml, mood/affect nml, cognition normal. No: disoriented, weakness/sensory loss, speech/cognition abnml Discharge Clincal Impression: Nausea alone, Dehydration Prescriptions: Ondansetron HCl Rapdis [Zofran Odt] 4 mg PO Q8 PRN #30 tab PRN Reason: nausea/vomiting Referrals: Primary Doctor,No [Primary Care Provider] - 2 Days Additional Instructions: 1. Zofran every 8 hours as needed for nausea 2. Drink plenty of fluids to maintain proper hydration. Juice, gatorade, water, etc 3. Follow up with PCP within 1 week 4. Return to ER for new or worsening symptoms Condition: Stable Disposition: 01 HOME, SELF-CARE Decision to Admit: NO Date of Decison to Admit: 04/06/19 Decision Time: 17:34
[2019-04-06] MEDS: ONDANSETRON HCL/PF 4 MG/ 2ML VIAL IVP ONE (15:23)
[2019-04-06 15:28] LABS: BASOPHILS % 0.6 % (0.0-1.5); NEUTROPHILS # 2.9 # k/uL (1.4-7.7)
[2019-04-06 15:35] LABS: eGFR (Non-African) > 60
--- NOTE | 2019-04-06 15:48 | Diagnostic Imaging Report ---
JERONIMO BELTRAN [facility] [address] [facility] [address] [address] Report Submission Date: Apr 06, 2019 3:45:13 PM CDT Patient Study Name: VICKIE DOSHI Date: Apr 06, 2019 3:11:11 PM CDT Modality Type: DX Gender: F Description: ABDOMEN 1VIEW : 30 Institution: [facility] Physician: JERONIMO BELTRAN Exam: Single-view abdomen. History: Nausea. The examination is compared to a study dated October 27, 2018. Scattered loops of bowel gas in both large and small intestine is noted with a moderate amount of retained fecal material seen in the colon. No organomegaly is seen. No renal or biliary calcifications are noted. No free air is identified Impression: Nonspecific bowel gas pattern. Electronically signed on Apr 06, 2019 3:45:13 PM CDT by: Refugio CAMACHO
--- NOTE | 2019-04-06 15:49 | Diagnostic Imaging Report ---
JERONIMO BELTRAN [facility] [address] [facility] [address] [facility] [address] [place], [place]. [address] Report Submission Date: Apr 06, 2019 3:45:02 PM CDT Patient Study Name: VICKIE DOSHI Date: Apr 06, 2019 3:11:11 PM CDT Modality Type: DX Gender: F Description: CHEST 2VIEW : 30 Institution: [facility] Physician: JERONIMO BELTRAN 2 views of the chest History: Dizziness Comparison: March 24, 2018 Patient is rotated. Cardiac size upper limits of normal. Limited evaluation of the mediastinum and pulmonary nahum. Aortic calcification. Post surgical changes left axilla. Right shoulder degenerative changes. Calcification at the left scapula. Nodular density noted at the right 6th posterior rib. Left basilar atelectasis/patchy infiltrate. Device/ battery pack is noted over the posterior chest Impression: 1. Patient is rotated. Limited evaluation of the mediastinum and pulmonary hilum. Left basilar patchy infiltrate/atelectasis. 2. Indeterminate rounded 1.1 cm density noted at the posterior right 6th rib, lesion and/or malignancy is difficult to exclude. This can be evaluated with dedicated right rib series and/or cross-sectional imaging. Electronically signed on Apr 06, 2019 3:45:02 PM CDT by: Tereza CAMACHO
[2019-04-06] MEDS: 0.9 % SODIUM CHLORIDE 1,000 ML IV ONE (16:08)
[2019-04-06 18:27] VITALS: BP 165/81
== END 2019-04-06 18:10 | disposition home or self-care (01) ==
LOC: ED 14:49
DX: E86.0 Dehydration (principal); R11.0 Nausea
CPT/HCPCS: 71046; 74018; 80053; 83880; 84484; 85025; 96360; 96374; 99283; 99284; J2405; J7030; S1016